=== PATIENT | male | born 1945 | race Caucasian/White ===

== ENCOUNTER 2020-10-18 11:41 | Inpatient (IN) | payer MEDICARE, OTHER ==
[~2020-10-18] VITALS: Ht 185.4 cm; Wt 95.9 kg
[~2020-10-18 11:41] MED LIST: 24HOUR ALLERGY10 MG PO; ACETAMINOPHEN325 MG PO; DRISDOL50000 UNIT PO; DULCOLAX5 MG PO; LEVAQUIN500 MG PO; METAMUCIL1 DOSE PO; METRONIDAZOLE500 MG PO; MIRALAX 238GM238 GM PO; VOLTAREN **OUT50 MG PO
[2020-10-18 12:01] LABS: BASOPHIL 0.3 % (0-2); EOSINOPHIL 0 % (0-7); HCT 38.3 % (42.0-52.0); HGB 12.5 g/dl (13.2-18.0); LYMPHOCYTE 9.3 % (15-48); MCH 32.3 pg (25.0-31.0); MCHC 32.6 g/dL (32.0-36.0); MONOCYTE 19.9 % (0-12); MPV 10.9 fL (6.0-9.5); NEUTROPHIL 66.7 % (41-80); NRBC 0; PLT 171 K/uL (150-400); RBC 3.87 M/uL (4.70-6.00); RDW 13.6 % (11.5-14.0); WBC 8.8 K/uL (4.0-10.5)
[2020-10-18 12:22] LABS: ALBUMIN 2.8 g/dL (3.4-5.0); BILIRUBIN - TOTAL 0.9 mg/dL (0.2-1.0); BUN/CREAT RATIO (CALC) 37.2 RATIO; CREATININE 0.78 mg/dL (0.67-1.17); GLOBULIN (CALCULATION) 4.5 g/dL; POTASSIUM 4.1 mmol/L (3.5-5.1); TOTAL PROTEIN 7.3 g/dL (6.4-8.2)
[2020-10-18 12:31] LABS: LACTIC ACID 1.3 mmol/L (0.4-1.9)
[2020-10-18] MEDS ORDERED: DICLOFENAC SODI75 MG PO (14:43)
[2020-10-18] MEDS ORDERED: FENOFIBRATE54 MG PO (14:44)
[2020-10-18] MEDS ORDERED: NEURONTIN300 MG PO (14:47)
[2020-10-18] MEDS ORDERED: NEURONTIN100 M1 PO (14:47)
[2020-10-18] MEDS ORDERED: VITAMIN D21250 MCG PO (14:48)
[2020-10-18] MEDS ORDERED: ULTRAM50 MG PO (14:48)
[2020-10-18] MEDS ORDERED: PREDNISONE 20MG20 MG PO (14:49)
[2020-10-18] MEDS ORDERED: AZITHROMYCIN250 MG PO (14:49)
[2020-10-19 00:23] LABS: BILIRUBIN NEGATIVE (NEGATIVE); BLOOD NEGATIVE Ery/uL (NEGATIVE); CLARITY CLEAR (CLEAR); COLOR YELLOW (YELLOW); GLUCOSE (U) 2+ mg/dL (NORMAL); LEUKOCYTES NEGATIVE Leu/uL (NEGATIVE); NITRITE NEGATIVE (NEGATIVE); PROTEIN 2+ mg/dL (NEGATIVE); SPECIFIC GRAVITY 1.025 (1.001-1.030)
[2020-10-19 00:31] LABS: SQUAMOUS EPITHELIAL CELLS RARE; STARCH GRANULES PRESENT
--- NOTE | 2020-10-19 08:14 | NUR ---
UPON ASSESSMENT, PT O2 SAT 86-87% ON 5L O2. DOES NOT APPEAR TO BE SHORT OF AIR. RESPIRATORY NOTIFIED AND CHANGED PATIENT OVER TO NONREBREATHER. PATIENT NOW 95% WILL CONTINUE TO MONITOR
[2020-10-19 14:30] LABS: BASOPHIL 0.1 % (0-2); EOSINOPHIL 0.1 % (0-7); HCT 36.8 % (42.0-52.0); HGB 12.1 g/dl (13.2-18.0); LYMPHOCYTE 9.1 % (15-48); MCHC 32.9 g/dL (32.0-36.0); MCV 100.3 fL (78.0-100.0); MONOCYTE 18.4 % (0-12); MPV 11.1 fL (6.0-9.5); NEUTROPHIL 68.6 % (41-80); NRBC 0; PLT 190 K/uL (150-400); RBC 3.67 M/uL (4.70-6.00); RDW 13.7 % (11.5-14.0); WBC 6.7 K/uL (4.0-10.5)
[2020-10-19 14:48] LABS: CREATININE 0.84 mg/dL (0.67-1.17)
[2020-10-19 15:59] LABS: RETICULOCYTE COUNT 1.7 % (1.0-2.0)
[2020-10-19 16:05] LABS: IRON % SATURATION 16.6 %SAT (20-50)
[2020-10-19 16:46] LABS: FOLIC ACID (SERUM) 40.4 ng/mL (8.6-58.9)
--- NOTE | 2020-10-19 17:00 | NUR ---
ATTEMPTED TO SWITCH PATIENT FROM NON REBREATHER TO OXIMIZER 15L PER MD , PT O2 SAT DROPPED TO 86%. RT NOTIFIED AND SWITCHED PATIENT BACK TO NONREBREATHER MASK AND PATIENT IS 92% WILL CONITNUE TO MONITOR
[2020-10-20 06:34] LABS: BASOPHIL 0.2 % (0-2); EOSINOPHIL 0 % (0-7); HCT 35.8 % (42.0-52.0); HGB 11.9 g/dl (13.2-18.0); LYMPHOCYTE 16.1 % (15-48); MCH 32.9 pg (25.0-31.0); MCHC 33.2 g/dL (32.0-36.0); MCV 98.9 fL (78.0-100.0); MONOCYTE 20.8 % (0-12); MPV 10.9 fL (6.0-9.5); NEUTROPHIL 57.9 % (41-80); NRBC 0; PLT 255 K/uL (150-400); RBC 3.62 M/uL (4.70-6.00); RDW 13.6 % (11.5-14.0)
[2020-10-20 06:48] LABS: BUN/CREAT RATIO (CALC) 38.6 RATIO; CREATININE 0.83 mg/dL (0.67-1.17); MAGNESIUM 2.3 mg/dL (1.8-2.4); PHOSPHORUS 2.8 mg/dL (2.6-4.7); POTASSIUM 4.2 mmol/L (3.5-5.1)
[2020-10-21 06:22] LABS: BASOPHIL 0.1 % (0-2); EOSINOPHIL 0 % (0-7); HCT 35.7 % (42.0-52.0); HGB 11.8 g/dl (13.2-18.0); LYMPHOCYTE 8.5 % (15-48); MCH 32.4 pg (25.0-31.0); MCHC 33.1 g/dL (32.0-36.0); MCV 98.1 fL (78.0-100.0); MPV 10.6 fL (6.0-9.5); NEUTROPHIL 74.4 % (41-80); NRBC 0; PLT 322 K/uL (150-400); RBC 3.64 M/uL (4.70-6.00); RDW 13.4 % (11.5-14.0); WBC 6.9 K/uL (4.0-10.5)
[2020-10-21 07:24] LABS: ALBUMIN 2.7 g/dL (3.4-5.0); BILIRUBIN - TOTAL 1.1 mg/dL (0.2-1.0); BUN/CREAT RATIO (CALC) 56.1 RATIO; CREATININE 0.66 mg/dL (0.67-1.17); GLOBULIN (CALCULATION) 3.8 g/dL; POTASSIUM 4.4 mmol/L (3.5-5.1); TOTAL PROTEIN 6.5 g/dL (6.4-8.2)
[2020-10-22 03:57] LABS: BASOPHIL 0.2 % (0-2); EOSINOPHIL 0 % (0-7); HCT 34.3 % (42.0-52.0); HGB 11.5 g/dl (13.2-18.0); LYMPHOCYTE 8.4 % (15-48); MCH 32.8 pg (25.0-31.0); MCHC 33.5 g/dL (32.0-36.0); MCV 97.7 fL (78.0-100.0); MONOCYTE 13.3 % (0-12); MPV 10.5 fL (6.0-9.5); NEUTROPHIL 73.8 % (41-80); NRBC 0; PLT 347 K/uL (150-400); RBC 3.51 M/uL (4.70-6.00); RDW 13.5 % (11.5-14.0); WBC 6.2 K/uL (4.0-10.5)
[2020-10-22 05:17] LABS: ALBUMIN 2.8 g/dL (3.4-5.0); ALKALINE PHOSHATASE 58 U/L (46-116); ALT 60 U/L (16-63); AST 53 U/L (15-37); BILIRUBIN - TOTAL 1.2 mg/dL (0.2-1.0); BUN 35 mg/dL (7-18); BUN/CREAT RATIO (CALC) 53.8 RATIO; CHLORIDE 106 mmol/L (98-107); CO2 (BICARBONATE) 24 mmol/L (21-32); CREATININE 0.65 mg/dL (0.67-1.17); GLOBULIN (CALCULATION) 3.7 g/dL; GLUCOSE 219 mg/dL (74-106); MAGNESIUM 2.4 mg/dL (1.8-2.4); POTASSIUM 4.3 mmol/L (3.5-5.1); TOTAL PROTEIN 6.5 g/dL (6.4-8.2)
[2020-10-22 05:18] LABS: C-REACTIVE PROTEIN < 0.20 mg/dL (<=0.90)
--- NOTE | 2020-10-22 09:56 | NUR ---
10/22/20 An unsuccessful attempt was made to reach Ms. King by telephone. Will continue to monitor patient for needs.
--- NOTE | 2020-10-22 18:19 | NUR ---
AT BEGINNING OF SHIFT PT WAS ON 40 LITERS AND 100% OXYGEN AND A 100% NON-REBREATHER MASK. AFTER SPEAKING WITH DR IGLESIAS HE DECIDED THAT IT WOULD BE BEST FOR THE PATIENT TO BE INTUBATED WAS PLANNED TO BE INTUBATED AT 1030 WITH ANESTHESIA PRESENT THE PATIENT WAS INTUBATED AT 1054, 5MG OF VERSED WAS GIVEN AT 11AM ALL OTHER INTUBATION DRUGS WERE GIVEN BY ANESTHESIA STAFF, PT WAS DIFFICULT TO SEDATE WITH 50MCG OF DIPRIVAN PT WAS STILL FIGHTING THE RESTRAINTS AT 1223 FENTANYL WAS STARTED AT 50MCG AND DIPRIVAN WAS DECREASED DOWN TO 40MCG AT 1235 100MCG OF FENTANYL WAS PUSHED AND 5MG OR VERSED WAS PUSHED TO HELP CALM PATIENT (SEE EMAR FOR TIMES)
--- NOTE | 2020-10-22 18:36 | NUR ---
OG TUBE INSERTED AT 1600 CONTINUOUS FEEDING WAS PREVIOUSLY ORDER, NO FEEDING PUMPS AVAILABLE AT THIS TIME DR IGLESIAS NOTIFIED
[2020-10-23 06:03] LABS: BASOPHIL 0.1 % (0-2); EOSINOPHIL 0 % (0-7); HCT 30.7 % (42.0-52.0); HGB 10.1 g/dl (13.2-18.0); LYMPHOCYTE 3.9 % (15-48); MCH 32.8 pg (25.0-31.0); MCHC 32.9 g/dL (32.0-36.0); MCV 99.7 fL (78.0-100.0); MONOCYTE 15.1 % (0-12); MPV 10.8 fL (6.0-9.5); NEUTROPHIL 78.5 % (41-80); NRBC 0; PLT 277 K/uL (150-400); RBC 3.08 M/uL (4.70-6.00); RDW 13.3 % (11.5-14.0); WBC 10.3 K/uL (4.0-10.5)
[2020-10-23 06:12] LABS: BUN/CREAT RATIO (CALC) 64.9 RATIO; CREATININE 0.57 mg/dL (0.67-1.17); POTASSIUM 4.4 mmol/L (3.5-5.1)
[2020-10-24 05:31] LABS: BASOPHIL 0.2 % (0-2); EOSINOPHIL 0 % (0-7); HGB 10.2 g/dl (13.2-18.0); LYMPHOCYTE 2.7 % (15-48); MCH 32.8 pg (25.0-31.0); MCHC 32.9 g/dL (32.0-36.0); MCV 99.7 fL (78.0-100.0); MONOCYTE 7.7 % (0-12); MPV 11.3 fL (6.0-9.5); NEUTROPHIL 84.6 % (41-80); NRBC 0.2; PLT 263 K/uL (150-400); RBC 3.11 M/uL (4.70-6.00); RDW 13.2 % (11.5-14.0)
[2020-10-24 05:36] LABS: WBC 12.4 K/uL (4.0-10.5)
[2020-10-24 05:58] LABS: ALBUMIN 2.3 g/dL (3.4-5.0); BILIRUBIN - TOTAL 0.6 mg/dL (0.2-1.0); BUN/CREAT RATIO (CALC) 73.5 RATIO; C-REACTIVE PROTEIN 0.2 mg/dL (<=0.90); CREATININE 0.49 mg/dL (0.67-1.17); GLOBULIN (CALCULATION) 3.4 g/dL; MAGNESIUM 2.6 mg/dL (1.8-2.4); POTASSIUM 4.3 mmol/L (3.5-5.1); TOTAL PROTEIN 5.7 g/dL (6.4-8.2)
[2020-10-25 04:31] LABS: BASOPHIL 0.2 % (0-2); EOSINOPHIL 0 % (0-7); HCT 30.4 % (42.0-52.0); HGB 9.9 g/dl (13.2-18.0); LYMPHOCYTE 2.5 % (15-48); MCH 32.2 pg (25.0-31.0); MCHC 32.6 g/dL (32.0-36.0); MONOCYTE 8.3 % (0-12); MPV 11.3 fL (6.0-9.5); NEUTROPHIL 83.4 % (41-80); NRBC 0.2; PLT 234 K/uL (150-400); RBC 3.07 M/uL (4.70-6.00); RDW 13.2 % (11.5-14.0); WBC 14.5 K/uL (4.0-10.5)
[2020-10-25 04:56] LABS: BUN/CREAT RATIO (CALC) 51.8 RATIO; CREATININE 0.56 mg/dL (0.67-1.17); POTASSIUM 4.2 mmol/L (3.5-5.1)
--- NOTE | 2020-10-26 01:28 | NUR ---
PATIENT PEEP WEANED TO 10 FROM 12. SAT 96% FIO2 SET AT 50%
[2020-10-26 04:42] LABS: BASOPHIL 0.5 % (0-2); EOSINOPHIL 0.1 % (0-7); HCT 32.7 % (42.0-52.0); HGB 10.3 g/dl (13.2-18.0); LYMPHOCYTE 1.6 % (15-48); MCH 33.4 pg (25.0-31.0); MCHC 31.5 g/dL (32.0-36.0); MONOCYTE 9.5 % (0-12); MPV 12.8 fL (6.0-9.5); NEUTROPHIL 81.8 % (41-80); NRBC 0.5; RBC 3.08 M/uL (4.70-6.00); RDW 13.6 % (11.5-14.0); WBC 17.4 K/uL (4.0-10.5)
[2020-10-26 04:44] LABS: MCV 106.2 fL (78.0-100.0)
[2020-10-26 04:46] LABS: PLT 142 K/uL (150-400)
[2020-10-26 04:53] LABS: BUN/CREAT RATIO (CALC) 53.7 RATIO; CREATININE 0.54 mg/dL (0.67-1.17); MAGNESIUM 2.6 mg/dL (1.8-2.4); POTASSIUM 4.7 mmol/L (3.5-5.1)
--- NOTE | 2020-10-26 22:33 | NUR ---
RD phone call to Brianda DE LA GARZA to get update re: TF . Pump now available for continuous infusion. currently at 30cc; TF held last shift d/t residuals. tolerating this shift. Lyn mckeon'caro; new TF recs placed in [employer]
[2020-10-27 06:10] LABS: BASOPHIL 0.4 % (0-2); EOSINOPHIL 0 % (0-7); HCT 31.9 % (42.0-52.0); HGB 10.2 g/dl (13.2-18.0); LYMPHOCYTE 0.9 % (15-48); MCH 32.4 pg (25.0-31.0); MCV 101.3 fL (78.0-100.0); MPV 12.2 fL (6.0-9.5); NEUTROPHIL 80.1 % (41-80); NRBC 0.8; PLT 242 K/uL (150-400); RBC 3.15 M/uL (4.70-6.00); RDW 13.7 % (11.5-14.0)
[2020-10-27 06:34] LABS: BUN/CREAT RATIO (CALC) 59.6 RATIO; CREATININE 0.57 mg/dL (0.67-1.17); POTASSIUM 4.2 mmol/L (3.5-5.1)
--- NOTE | 2020-10-27 13:30 | NUR ---
phone call to MD Mills to review patient's TFs. new orders placed for RD recommendations discussed. will follow POC.
[2020-10-28 06:58] LABS: BASOPHIL 0.2 % (0-2); EOSINOPHIL 0 % (0-7); HCT 27.9 % (42.0-52.0); HGB 8.9 g/dl (13.2-18.0); LYMPHOCYTE 1.5 % (15-48); MCH 32.4 pg (25.0-31.0); MCHC 31.9 g/dL (32.0-36.0); MCV 101.5 fL (78.0-100.0); MONOCYTE 9.2 % (0-12); MPV 12.1 fL (6.0-9.5); NEUTROPHIL 81.3 % (41-80); NRBC 0.7; PLT 180 K/uL (150-400); RBC 2.75 M/uL (4.70-6.00); RDW 13.8 % (11.5-14.0); WBC 24.1 K/uL (4.0-10.5)
[2020-10-28 08:07] LABS: BUN/CREAT RATIO (CALC) 57.1 RATIO; CREATININE 0.49 mg/dL (0.67-1.17); MAGNESIUM 2.8 mg/dL (1.8-2.4); POTASSIUM 4.3 mmol/L (3.5-5.1)
[2020-10-29 06:18] LABS: BASOPHIL 0.3 % (0-2); EOSINOPHIL 0 % (0-7); HCT 29.7 % (42.0-52.0); HGB 9.3 g/dl (13.2-18.0); LYMPHOCYTE 1.5 % (15-48); MCH 32.3 pg (25.0-31.0); MCHC 31.3 g/dL (32.0-36.0); MCV 103.1 fL (78.0-100.0); MPV 12.9 fL (6.0-9.5); PLT 154 K/uL (150-400); RBC 2.88 M/uL (4.70-6.00); RDW 13.5 % (11.5-14.0)
[2020-10-29 06:23] LABS: WBC 24.7 K/uL (4.0-10.5)
[2020-10-29 08:05] LABS: BILIRUBIN - TOTAL 0.4 mg/dL (0.2-1.0); CREATININE 0.48 mg/dL (0.67-1.17); POTASSIUM 4.8 mmol/L (3.5-5.1)
[2020-10-30 06:34] LABS: BASOPHIL 0.5 % (0-2); EOSINOPHIL 0 % (0-7); HCT 30.7 % (42.0-52.0); HGB 9.7 g/dl (13.2-18.0); LYMPHOCYTE 0 % (15-48); MCH 32.1 pg (25.0-31.0); MCHC 31.6 g/dL (32.0-36.0); MCV 101.7 fL (78.0-100.0); MONOCYTE 7.7 % (0-12); MPV 12.8 fL (6.0-9.5); NEUTROPHIL 79.9 % (41-80); NRBC 4.2; PLT 147 K/uL (150-400); RBC 3.02 M/uL (4.70-6.00); RDW 13.8 % (11.5-14.0); WBC 25.6 K/uL (4.0-10.5)
[2020-10-30 07:59] LABS: CREATININE 0.5 mg/dL (0.67-1.17); MAGNESIUM 2.7 mg/dL (1.8-2.4); PHOSPHORUS 3.5 mg/dL (2.6-4.7); POTASSIUM 5.3 mmol/L (3.5-5.1)
--- NOTE | 2020-10-30 19:10 | NUR ---
1825 ORDER RECEIVED FOR PICC LINE PLACEMENT. RISKS AND BENEFITS EXPLAINED TO FAMILY, CONSENT SIGNED/ PT'S RIGHT UPPER ARM BASILIC VEIN VISUALIZED [employer] 6 ULTRASOUND MACHINE. PT THEN PREPPED AND DRAPED IN STERILE FASHION. THE AREA WAS CLEANSED WITH CHLORAPREP. THE AREA WAS ANESTHETIZED WITH 1% LIDOCAINE. A 21GA GUIDE NEEDLE WAS USED. GOOD BLOOD RETURN. THE GUIDE WIRE WAS THEN REMOVED AND A CAP WAS PLACED ON THE END. THE PT WAS MEASURED FOR THE PICC PLACEMENT. PICC WAS TRIMMED AT 40 CM AND FLUSHED. THE INTRODUCER WAS REMOVED AND THE PICC CATHETER WAS GUIDED INTO POSITION. THE SHEATH WAS PEELED BACK. A STERILE BIOPATCH WAS PLACED AT THE INSERTION SITE. A STAT LOCK WAS PLACED ON. A STERILE TEGADERM WAS PLACED OVER THE PICC LINE. A STAT PORTABLE CHEST XRAY WAS OBTAINED. PER DR. BARRETT THE PICC LINE IS IN THE CORRECT POSITION.THE STYLET WAS REMOVED AND A CLEAR CAP WAS FLUSHED AND PLACED ON THE BOTH ENDS. PT HAS A 5 FR DOUBLE LUMEN POWER PICC. TRIMMED AT 40 CM, INSERTION 4 CM. BICEP 32 CM. GOOD BLOOD RETURN NOTED. PT TOLERATED WELL. REPORT GIVEN TO JENNIFER DE LA GARZA ON TCU 6. PT TOLERATED THE PROCEDURE WELL. SR UP X 4. .
--- NOTE | 2020-10-30 22:59 | NUR ---
2115 PREPRONE CHECKLIST COMPLETED AND READ ALOUD DURING PRONING. CHG BATH PROVIDED. FOAM DRESSINGS APPLIED TO BONY PROMINENCES: KNEES, SHOULDERS/CLAVICLE, HIPS. ELECTRODES REMOVED. STAT LOCK FOR F/C ABSENT. TUBE FEEDS HELD. ORAL CARE AND SUCTION PROVIDED PRE-PRONE. PERRLA INTACT, EYE PROTECTION PLACED. LINES/TUBES SECURED. PT ADEQUATELY SEDATED/PARALYZED BIS-42 TOF 2/4 PRE-PRONE. PILLOWS AND FLAT SHEET PLACED PER PROTOCOL. 6 NURSING STAFF AT BEDSIDE, 1 RT AT HEAD OF BED, ER MD AT BEDSIDE. BED PLACED IN FLAT POSITION, PT TOLERATED TURN WELL. O2-92% HR-92 BP-151/79 R-18. BIS-40, TOF-2/4 POST PRONATION. ELECTRODES PLACED ON BACK- TELE NSR. ETT 24@LIP. PRONATION PILLOW PLACED UNDER HEAD. HEAD TURNED RT, ARMS IN SWIMMERS POSITION, BED PLACED IN REVERSE [place]. EAR INTACT, EYES CLOSED AND EYE PROTECTION IN PLACE. SKIN REMAINED INTACT, NO OPEN AREAS NOTED. PICC LINE BLEEDING/LEAKING POST TURN, FLUSHES WELL, BLOOD RETURN NOTED. WREATH MACHINE TENDER AWARE.
[2020-10-31 04:10] LABS: BASOPHIL 0.3 % (0-2); EOSINOPHIL 0 % (0-7); HCT 27.4 % (42.0-52.0); LYMPHOCYTE 1.3 % (15-48); MCH 33.1 pg (25.0-31.0); MCHC 32.1 g/dL (32.0-36.0); MONOCYTE 14.9 % (0-12); MPV 12.6 fL (6.0-9.5); NEUTROPHIL 75.4 % (41-80); NRBC 3.9; PLT 174 K/uL (150-400); RBC 2.66 M/uL (4.70-6.00); RDW 14.1 % (11.5-14.0)
[2020-10-31 04:31] LABS: BILIRUBIN - TOTAL 0.7 mg/dL (0.2-1.0); BUN/CREAT RATIO (CALC) 81.2 RATIO; C-REACTIVE PROTEIN 3.6 mg/dL (<=0.90); CREATININE 0.48 mg/dL (0.67-1.17); GLOBULIN (CALCULATION) 3.3 g/dL; MAGNESIUM 2.3 mg/dL (1.8-2.4); TOTAL PROTEIN 5.3 g/dL (6.4-8.2)
[2020-10-31 04:52] LABS: HGB 8.8 g/dl (13.2-18.0); WBC 48.5 K/uL (4.0-10.5)
[2020-10-31 05:53] LABS: INR 1.13 (0.9-1.2); PROTHROMBIN TIME 13.9 SECONDS (11.8-13.4)
[2020-10-31 06:20] LABS: TOTAL CELL COUNT 100
[2020-10-31 06:22] LABS: BAND 2 % (0-10); LYMPHOCYTE(M) 7 % (15-48); MONOCYTE(M) 9 % (0-12); NEUTROPHILS(M) 82 % (41-80)
[2020-10-31 06:23] LABS: ANISOCYTOSIS SLIGHT; PLATELET ESTIMATE NORMAL; PLATELET MORPHOLOGY NORMAL
--- NOTE | 2020-10-31 14:24 | NUR ---
10/31 Please monitor for 02 needs at discharge.
[2020-11-01 04:35] LABS: BASOPHIL 0.1 % (0-2); EOSINOPHIL 0 % (0-7); HCT 16.6 % (42.0-52.0); LYMPHOCYTE 1.7 % (15-48); MCH 32.9 pg (25.0-31.0); MCHC 31.3 g/dL (32.0-36.0); MCV 105.1 fL (78.0-100.0); MONOCYTE 12.2 % (0-12); NEUTROPHIL 78.6 % (41-80); NRBC 8.2; PLT 121 K/uL (150-400); RBC 1.58 M/uL (4.70-6.00); RDW 14.7 % (11.5-14.0)
[2020-11-01 04:45] LABS: HGB 5.2 g/dl (13.2-18.0)
[2020-11-01 04:46] LABS: WBC 40.7 K/uL (4.0-10.5)
[2020-11-01 05:03] LABS: CREATININE 1.09 mg/dL (0.67-1.17); PHOSPHORUS 6.5 mg/dL (2.6-4.7); POTASSIUM 5.8 mmol/L (3.5-5.1)
[2020-11-01 05:04] LABS: MAGNESIUM 2.4 mg/dL (1.8-2.4)
[2020-11-01 14:48] LABS: MCH 31.2 pg (25.0-31.0); MCHC 33.2 g/dL (32.0-36.0); MPV 14.4 fL (6.0-9.5); RBC 2.66 M/uL (4.70-6.00)
[2020-11-01 14:53] LABS: WBC 32.7 K/uL (4.0-10.5)
[2020-11-01 14:54] LABS: HGB 8.3 g/dl (13.2-18.0)
[2020-11-01 15:18] LABS: BUN/CREAT RATIO (CALC) 58.7 RATIO; CREATININE 1.04 mg/dL (0.67-1.17); POTASSIUM 5.7 mmol/L (3.5-5.1)
[2020-11-02 06:29] LABS: BASOPHIL 0.4 % (0-2); EOSINOPHIL 0.4 % (0-7); HCT 28.2 % (42.0-52.0); HGB 9.4 g/dl (13.2-18.0); LYMPHOCYTE 1.5 % (15-48); MCH 29.5 pg (25.0-31.0); MCHC 33.3 g/dL (32.0-36.0); MONOCYTE 15.2 % (0-12); NEUTROPHIL 75.1 % (41-80); NRBC 10.7; RBC 3.19 M/uL (4.70-6.00); RDW 16.5 % (11.5-14.0); RETICULOCYTE COUNT 4.2 % (1.0-2.0); WBC 28.3 K/uL (4.0-10.5)
[2020-11-02 06:30] LABS: MCV 88.4 fL (78.0-100.0)
[2020-11-02 06:31] LABS: PLT 62 K/uL (150-400)
[2020-11-02 06:44] LABS: IRON % SATURATION 91.3 %SAT (20-50)
[2020-11-02 07:18] LABS: ALBUMIN 1.7 g/dL (3.4-5.0); BILIRUBIN - TOTAL 0.8 mg/dL (0.2-1.0); BUN/CREAT RATIO (CALC) 55.1 RATIO; CREATININE 1.07 mg/dL (0.67-1.17); FOLIC ACID (SERUM) 9.6 ng/mL (8.6-58.9); GLOBULIN (CALCULATION) 2.9 g/dL; MAGNESIUM 2.4 mg/dL (1.8-2.4); PHOSPHORUS 4.8 mg/dL (2.6-4.7); POTASSIUM 5.3 mmol/L (3.5-5.1); TOTAL PROTEIN 4.6 g/dL (6.4-8.2)
[2020-11-02 13:31] LABS: INR 1.4 (0.9-1.2); PROTHROMBIN TIME 16.5 SECONDS (11.8-13.4); PTT 39.7 SECONDS (24.4-34.7)
[2020-11-02 13:32] LABS: D-DIMER 0.71 ug/mLFEU (0.00-0.41)
[2020-11-02 17:53] LABS: HCT 19.9 % (42.0-52.0); HGB 6.6 g/dl (13.2-18.0); MCH 29.7 pg (25.0-31.0); MCHC 33.2 g/dL (32.0-36.0); MCV 89.6 fL (78.0-100.0); MPV 14.9 fL (6.0-9.5); RBC 2.22 M/uL (4.70-6.00); RDW 17.4 % (11.5-14.0); WBC 24.6 K/uL (4.0-10.5)
[2020-11-02 18:18] LABS: BUN/CREAT RATIO (CALC) 61.9 RATIO; CREATININE 1.05 mg/dL (0.67-1.17); POTASSIUM 4.9 mmol/L (3.5-5.1)
--- NOTE | 2020-11-03 04:27 | NUR ---
11/02/20 2200 BLOOD GLUCOSE 488 HUMULIN SSI 18UNITS AND CALL MD GORE SAID TO GIVE 22UNITS SUBCUTANEOUS, AND ORDERED LANTUS 50UNITS SUBCUTANEOUS, WILL CONTINUE TO MONITOR
[2020-11-03 08:21] LABS: BASOPHIL 0.3 % (0-2); EOSINOPHIL 0 % (0-7); HCT 32.9 % (42.0-52.0); LYMPHOCYTE 1.1 % (15-48); MCH 29.5 pg (25.0-31.0); MCHC 33.4 g/dL (32.0-36.0); MCV 88.2 fL (78.0-100.0); MONOCYTE 15.6 % (0-12); NEUTROPHIL 78.5 % (41-80); PLT 42 K/uL (150-400); RBC 3.73 M/uL (4.70-6.00)
[2020-11-03 08:30] LABS: INR 1.16 (0.9-1.2); PROTHROMBIN TIME 14.2 SECONDS (11.8-13.4); PTT 32.3 SECONDS (24.4-34.7)
[2020-11-03 08:31] LABS: D-DIMER 1.09 ug/mLFEU (0.00-0.41)
[2020-11-03 08:41] LABS: BAND 6 % (0-10); METAMYELOCYTE 1; MONOCYTE(M) 9 % (0-12); NEUTROPHILS(M) 81 % (41-80); NRBC 13; TOTAL CELL COUNT 100; VARIANT LYMPHOCYTE 3
[2020-11-03 08:42] LABS: PLATELET ESTIMATE DECREASED
[2020-11-03 08:43] LABS: ANISOCYTOSIS SLIGHT; PLATELET MORPHOLOGY NORMAL; POIKILOCYTOSIS SLIGHT
[2020-11-03 08:44] LABS: POLYCHROMASIA SLIGHT
[2020-11-03 08:46] LABS: WBC 33.1 K/uL (4.0-10.5)
[2020-11-03 08:48] LABS: ALBUMIN 1.7 g/dL (3.4-5.0); BILIRUBIN - TOTAL 0.8 mg/dL (0.2-1.0); BUN/CREAT RATIO (CALC) 59.3 RATIO; C-REACTIVE PROTEIN 3.6 mg/dL (<=0.90); CREATININE 1.23 mg/dL (0.67-1.17); GLOBULIN (CALCULATION) 2.8 g/dL; MAGNESIUM 2.5 mg/dL (1.8-2.4); PHOSPHORUS 4.9 mg/dL (2.6-4.7); POTASSIUM 4.9 mmol/L (3.5-5.1); TOTAL PROTEIN 4.5 g/dL (6.4-8.2)
--- NOTE | 2020-11-03 20:46 | NUR ---
Nutrition Follow-up complete; new recommendations discussed with MD Frederick; orders placed for formula change to Glucerna 1.2, rate increased to 70cc/hr. information covered with RN: full nutrition assessment placed in EMR.
[2020-11-04 04:27] LABS: BASOPHIL 0.2 % (0-2); EOSINOPHIL 0 % (0-7); HCT 23.9 % (42.0-52.0); HGB 7.8 g/dl (13.2-18.0); LYMPHOCYTE 0 % (15-48); MCH 29.3 pg (25.0-31.0); MCHC 32.6 g/dL (32.0-36.0); MCV 89.8 fL (78.0-100.0); MONOCYTE 10.4 % (0-12); NRBC 6.3; RBC 2.66 M/uL (4.70-6.00); RDW 17.2 % (11.5-14.0)
[2020-11-04 04:41] LABS: ALBUMIN 1.5 g/dL (3.4-5.0); BILIRUBIN - TOTAL 0.6 mg/dL (0.2-1.0); CREATININE 1.3 mg/dL (0.67-1.17); GLOBULIN (CALCULATION) 2.7 g/dL; MAGNESIUM 2.4 mg/dL (1.8-2.4); PHOSPHORUS 4.7 mg/dL (2.6-4.7); POTASSIUM 4.8 mmol/L (3.5-5.1); TOTAL PROTEIN 4.2 g/dL (6.4-8.2)
[2020-11-04 04:45] LABS: PLT 40 K/uL (150-400)
[2020-11-04 04:46] LABS: NEUTROPHIL 85.5 % (41-80); WBC 41.9 K/uL (4.0-10.5)
[2020-11-04 17:10] LABS: HEPARIN INDUCED PLATELET AB 0.062 OD (0.000-0.400)
[2020-11-05 06:25] LABS: BASOPHIL 0.1 % (0-2); EOSINOPHIL 0 % (0-7); HCT 14.2 % (42.0-52.0); LYMPHOCYTE 0 % (15-48); MCH 29.3 pg (25.0-31.0); MCHC 32.4 g/dL (32.0-36.0); MCV 90.4 fL (78.0-100.0); MONOCYTE 9.8 % (0-12); NRBC 8.2; RBC 1.57 M/uL (4.70-6.00); RDW 17.1 % (11.5-14.0); WBC 21.1 K/uL (4.0-10.5)
[2020-11-05 06:56] LABS: HGB 4.6 g/dl (13.2-18.0)
[2020-11-05 06:58] LABS: PLT 26 K/uL (150-400)
[2020-11-05 07:35] LABS: CREATININE 0.99 mg/dL (0.67-1.17); MAGNESIUM 2.6 mg/dL (1.8-2.4); POTASSIUM 4.9 mmol/L (3.5-5.1)
[2020-11-05 08:45] LABS: RETICULOCYTE COUNT 4.5 % (1.0-2.0)
[2020-11-05 17:57] LABS: HCT 20.6 % (42.0-52.0)
[2020-11-05 17:59] LABS: HGB 6.7 g/dL (13.2-18.0)
[2020-11-06 08:47] LABS: ALBUMIN 2.1 g/dL (3.4-5.0); BILIRUBIN - TOTAL 1.1 mg/dL (0.2-1.0); BUN/CREAT RATIO (CALC) 92.5 RATIO; CREATININE 0.67 mg/dL (0.67-1.17); GLOBULIN (CALCULATION) 2.7 g/dL; INR 1.07 (0.9-1.2); POTASSIUM 4.9 mmol/L (3.5-5.1); PROTHROMBIN TIME 13.3 SECONDS (11.8-13.4); PTT 34.9 SECONDS (24.4-34.7); TOTAL PROTEIN 4.8 g/dL (6.4-8.2)
[2020-11-06 08:54] LABS: BASOPHIL 0.2 % (0-2); EOSINOPHIL 0.1 % (0-7); HCT 27.5 % (42.0-52.0); LYMPHOCYTE 0 % (15-48); MCH 28.9 pg (25.0-31.0); MCHC 32.7 g/dL (32.0-36.0); MCV 88.4 fL (78.0-100.0); MONOCYTE 9.1 % (0-12); NEUTROPHIL 87.9 % (41-80); NRBC 10.3; RBC 3.11 M/uL (4.70-6.00); RDW 16.1 % (11.5-14.0)
[2020-11-06 08:58] LABS: PLT 21 K/uL (150-400); WBC 23.7 K/uL (4.0-10.5)
[2020-11-06 10:26] LABS: BILIRUBIN NEGATIVE (NEGATIVE); BLOOD 2+ Ery/uL (NEGATIVE); CLARITY CLEAR (CLEAR); COLOR YELLOW (YELLOW); GLUCOSE (U) NORMAL (NORMAL); LEUKOCYTES NEGATIVE Leu/uL (NEGATIVE); NITRITE NEGATIVE (NEGATIVE); PROTEIN 1+ mg/dL (NEGATIVE); SPECIFIC GRAVITY 1.015 (1.001-1.030); UROBILINOGEN >=8.0 mg/dL (0.2-1.0); pH 6.5 (5.0-9.0)
[2020-11-06 10:33] LABS: YEAST PRESENT
[2020-11-06 10:34] LABS: URINARY RBC RARE; URINARY WBC RARE
[2020-11-06 10:35] LABS: BACTERIA TRACE; SQUAMOUS EPITHELIAL CELLS RARE
--- NOTE | 2020-11-06 16:10 | NUR ---
ESPINAL TUBING AND BAG CHANGED -1200 UA OBTAINED PICC LINE DRESSING CHANGED - 1530 A LINE TUBING AND DRESSING CHANGED - 1530 LAC IV SITE DRESSING CHANGED - 1530 RESTRAINTS CHANGED -1600 R/T SOILED TUBE FEEDS AND TUBING CHANGED- 0845 VERSED TUBING CHANGED MEROPENUM TUBING CHANGED
[2020-11-07 04:26] LABS: BASOPHIL 0.1 % (0-2); EOSINOPHIL 0 % (0-7); HCT 27.4 % (42.0-52.0); HGB 8.7 g/dl (13.2-18.0); LYMPHOCYTE 0 % (15-48); MCHC 31.8 g/dL (32.0-36.0); MCV 91.3 fL (78.0-100.0); MONOCYTE 7.8 % (0-12); MPV 13.2 fL (6.0-9.5); NEUTROPHIL 90.4 % (41-80); NRBC 6.6; RDW 17.1 % (11.5-14.0); WBC 24.1 K/uL (4.0-10.5)
[2020-11-07 04:46] LABS: PLT 50 K/uL (150-400)
[2020-11-07 05:20] LABS: BILIRUBIN - TOTAL 1.1 mg/dL (0.2-1.0); BUN/CREAT RATIO (CALC) 96.4 RATIO; CREATININE 0.56 mg/dL (0.67-1.17); MAGNESIUM 2.9 mg/dL (1.8-2.4); PHOSPHORUS 2.6 mg/dL (2.6-4.7); POTASSIUM 5.4 mmol/L (3.5-5.1)
--- NOTE | 2020-11-07 13:48 | NUR ---
DANNIE RT WENT INTO ROOM AND STATES THAT PATIENT APPEARED TO HAVE VOMITED AND HAD TUBE FEEDING AROUND HIS MOUTH. DANNIE RT REPORTS THAT HE SUCTIONED HIS MOUTH TO WHICH HE DID REMOVE A MODERATE AMOUNT OF LIQUID FROM THE MOUTH. ASHLEY DE LA GARZA WENT INTO ROOMPAUSED THE FEEDING, RESIDUAL WAS CHECKED AND WAS 55ML ADMINISTERED THE 55ML TO PATIENT. CALLED MD IGLESIAS FOR FURTHER INSTRUCTION, KELSIE ORDERS FOR TUBE FEEDING RATE TO BE DECREASED TO 30ML. ASHLEY DE LA GARZA RECOMMENDED FOR A CHEST X-RAY MD IGLESIAS STATES NOT AT THIS TIME DUE TO THE ET CUFF PT VITALS STABLE, STARTED TUBE FEED BACK AT 30ML, WILL CONTINUE TO MONITOR
[2020-11-08 05:31] LABS: BASOPHIL 0.1 % (0-2); EOSINOPHIL 0 % (0-7); HCT 29.3 % (42.0-52.0); HGB 9.1 g/dl (13.2-18.0); LYMPHOCYTE 0.5 % (15-48); MCH 28.9 pg (25.0-31.0); MCHC 31.1 g/dL (32.0-36.0); MONOCYTE 5.2 % (0-12); MPV 13.4 fL (6.0-9.5); NEUTROPHIL 92.9 % (41-80); NRBC 3.8; RBC 3.15 M/uL (4.70-6.00); RDW 16.8 % (11.5-14.0); WBC 20.5 K/uL (4.0-10.5)
[2020-11-08 05:32] LABS: PLT 44 K/uL (150-400)
[2020-11-08 05:34] LABS: INR 1.11 (0.9-1.2); PROTHROMBIN TIME 13.7 SECONDS (11.8-13.4)
[2020-11-08 05:35] LABS: PTT 34.6 SECONDS (24.4-34.7)
[2020-11-08 05:49] LABS: D-DIMER 4.98 ug/mLFEU (0.00-0.41)
[2020-11-08 06:12] LABS: BUN/CREAT RATIO (CALC) 94.3 RATIO; CREATININE 0.53 mg/dL (0.67-1.17)
[2020-11-08 06:15] LABS: POTASSIUM 5.5 mmol/L (3.5-5.1)
--- NOTE | 2020-11-09 02:16 | NUR ---
D/Cd HAROON AT 2300 ON 11/08/20 PER ORDER.
[2020-11-09 04:38] LABS: BASOPHIL 0.1 % (0-2); EOSINOPHIL 0.1 % (0-7); MCH 28.9 pg (25.0-31.0); MCHC 31.3 g/dL (32.0-36.0); MCV 92.5 fL (78.0-100.0); MONOCYTE 5.3 % (0-12); NRBC 3.3; RBC 3.46 M/uL (4.70-6.00); RDW 16.5 % (11.5-14.0); WBC 18.7 K/uL (4.0-10.5)
[2020-11-09 04:45] LABS: PLT 62 K/uL (150-400)
[2020-11-09 04:46] LABS: NEUTROPHIL 92.6 % (41-80)
[2020-11-09 05:00] LABS: BUN/CREAT RATIO (CALC) 105.9 RATIO; CREATININE 0.51 mg/dL (0.67-1.17); POTASSIUM 5.3 mmol/L (3.5-5.1)
--- NOTE | 2020-11-09 18:47 | NUR ---
PATIENT'S SATS DECREASED AFTER OXYGEN DECREASED, RAISED TO 65%.
[2020-11-10 04:05] LABS: BASOPHIL 0.1 % (0-2); EOSINOPHIL 0 % (0-7); HCT 32.4 % (42.0-52.0); HGB 10.1 g/dl (13.2-18.0); LYMPHOCYTE 1.7 % (15-48); MCH 28.6 pg (25.0-31.0); MCHC 31.2 g/dL (32.0-36.0); MCV 91.8 fL (78.0-100.0); MONOCYTE 4.7 % (0-12); NRBC 2.1; PLT 69 K/uL (150-400); RBC 3.53 M/uL (4.70-6.00); RDW 16.4 % (11.5-14.0); WBC 17.8 K/uL (4.0-10.5)
[2020-11-10 04:17] LABS: NEUTROPHIL 92.5 % (41-80)
[2020-11-10 05:10] LABS: BUN/CREAT RATIO (CALC) 96.2 RATIO; CREATININE 0.52 mg/dL (0.67-1.17); POTASSIUM 5.1 mmol/L (3.5-5.1)
[2020-11-11 04:09] LABS: BUN/CREAT RATIO (CALC) 93.9 RATIO; CREATININE 0.49 mg/dL (0.67-1.17)
[2020-11-11 06:59] LABS: BASOPHIL 0.1 % (0-2); EOSINOPHIL 0.1 % (0-7); HCT 34.8 % (42.0-52.0); HGB 10.7 g/dl (13.2-18.0); LYMPHOCYTE 1.2 % (15-48); MCH 28.8 pg (25.0-31.0); MCHC 30.7 g/dL (32.0-36.0); MCV 93.8 fL (78.0-100.0); MONOCYTE 4.9 % (0-12); NEUTROPHIL 92.7 % (41-80); NRBC 1.4; PLT 68 K/uL (150-400); RBC 3.71 M/uL (4.70-6.00); RDW 16.2 % (11.5-14.0); WBC 19.8 K/uL (4.0-10.5)
--- NOTE | 2020-11-11 15:00 | NUR ---
PT TUBE FEDDING RESIDUAL CHECKED ON ROUNDS BY THIS RN. RESIDUAL WAS 300 ML, TUBE FEEDS WILL BE HELD FOR 4 HOURS OR 7 PM.
[2020-11-12 05:00] LABS: BASOPHIL 0.1 % (0-2); EOSINOPHIL 0.2 % (0-7); HCT 31.5 % (42.0-52.0); HGB 9.8 g/dl (13.2-18.0); LYMPHOCYTE 1.2 % (15-48); MCHC 31.1 g/dL (32.0-36.0); MCV 93.2 fL (78.0-100.0); MONOCYTE 4.3 % (0-12); MPV 14.9 fL (6.0-9.5); NEUTROPHIL 92.7 % (41-80); NRBC 0.9; RBC 3.38 M/uL (4.70-6.00); RDW 16.2 % (11.5-14.0)
[2020-11-12 05:03] LABS: PLT 51 K/uL (150-400); WBC 16.9 K/uL (4.0-10.5)
[2020-11-12 05:14] LABS: ALBUMIN 1.9 g/dL (3.4-5.0); BILIRUBIN - TOTAL 1.5 mg/dL (0.2-1.0); BUN/CREAT RATIO (CALC) 97.7 RATIO; C-REACTIVE PROTEIN 7.7 mg/dL (<=0.90); CREATININE 0.44 mg/dL (0.67-1.17); MAGNESIUM 2.1 mg/dL (1.8-2.4); PHOSPHORUS 2.7 mg/dL (2.6-4.7); POTASSIUM 4.7 mmol/L (3.5-5.1); TOTAL PROTEIN 5.9 g/dL (6.4-8.2)
[2020-11-13 08:38] LABS: BASOPHIL 0.1 % (0-2); EOSINOPHIL 0.3 % (0-7); HCT 30.6 % (42.0-52.0); HGB 9.5 g/dl (13.2-18.0); LYMPHOCYTE 1.3 % (15-48); MCH 29.1 pg (25.0-31.0); MCV 93.6 fL (78.0-100.0); MONOCYTE 4.8 % (0-12); NRBC 0.3; RBC 3.27 M/uL (4.70-6.00); RDW 15.8 % (11.5-14.0); WBC 13.7 K/uL (4.0-10.5)
[2020-11-13 08:41] LABS: NEUTROPHIL 92.4 % (41-80)
[2020-11-13 08:42] LABS: PLT 43 K/uL (150-400)
[2020-11-13 08:56] LABS: ALBUMIN 1.8 g/dL (3.4-5.0); BILIRUBIN - TOTAL 1.3 mg/dL (0.2-1.0); BUN/CREAT RATIO (CALC) 105.1 RATIO; C-REACTIVE PROTEIN 7.7 mg/dL (<=0.90); CREATININE 0.39 mg/dL (0.67-1.17); GLOBULIN (CALCULATION) 3.5 g/dL; PHOSPHORUS 2.4 mg/dL (2.6-4.7); POTASSIUM 4.6 mmol/L (3.5-5.1); TOTAL PROTEIN 5.3 g/dL (6.4-8.2)
[2020-11-15 04:27] LABS: BASOPHIL 0.1 % (0-2); EOSINOPHIL 0.2 % (0-7); HCT 29.1 % (42.0-52.0); LYMPHOCYTE 4.4 % (15-48); MCH 29.2 pg (25.0-31.0); MCHC 30.9 g/dL (32.0-36.0); MCV 94.5 fL (78.0-100.0); MONOCYTE 3.5 % (0-12); NRBC 0; RBC 3.08 M/uL (4.70-6.00); RDW 15.9 % (11.5-14.0); WBC 10.7 K/uL (4.0-10.5)
[2020-11-15 04:29] LABS: NEUTROPHIL 90.6 % (41-80)
[2020-11-15 04:30] LABS: PLT 36 K/uL (150-400)
[2020-11-15 05:02] LABS: ALBUMIN 1.6 g/dL (3.4-5.0); BILIRUBIN - TOTAL 1.2 mg/dL (0.2-1.0); CREATININE 0.47 mg/dL (0.67-1.17); MAGNESIUM 2.1 mg/dL (1.8-2.4); PHOSPHORUS 2.2 mg/dL (2.6-4.7); POTASSIUM 4.3 mmol/L (3.5-5.1); TOTAL PROTEIN 5.6 g/dL (6.4-8.2)
[2020-11-16 05:14] LABS: BASOPHIL 0.2 % (0-2); EOSINOPHIL 0.2 % (0-7); HCT 29.5 % (42.0-52.0); MCH 28.8 pg (25.0-31.0); MCHC 30.5 g/dL (32.0-36.0); MCV 94.6 fL (78.0-100.0); MONOCYTE 3.5 % (0-12); MPV 11.9 fL (6.0-9.5); NRBC 0.4; RBC 3.12 M/uL (4.70-6.00); WBC 10.3 K/uL (4.0-10.5)
[2020-11-16 05:22] LABS: NEUTROPHIL 88.5 % (41-80); PLT 68 K/uL (150-400)
[2020-11-16 05:34] LABS: BUN/CREAT RATIO (CALC) 113.2 RATIO; CREATININE 0.53 mg/dL (0.67-1.17); MAGNESIUM 2.3 mg/dL (1.8-2.4); PHOSPHORUS 2.9 mg/dL (2.6-4.7)
--- NOTE | 2020-11-16 14:49 | NUR ---
PT WAS TURNED TO HIS LEFT SIDE, PT DESATED DOWN TO 82%. REPOSITIONED BACK TO THE RIGHT SIDE AND INCREASED FIO2 TO 85%, SATS CAME UP TO 89%. NOTIFIED DR BARRETT, HE SAID TO HAVE RESPIRATORY TO PLACE BACK ON PRESSURE SUPPORT FOR TODAY HE SEE IF THAT HELPS NOTIFIED RESP OF THE VERBAL ORDER FROM DR BARRETT TO PLACE ON PRESSURE SUPPORT
--- NOTE | 2020-11-16 17:42 | NUR ---
CPAP TRIAL STARTED AT 1504 TO 1608 CHANGED BACK TO AC RATE 22, TIDAL 450, PEEP 6, FIO2 85 AT 1725 CHANGED TO SIMV RATE 22, TIDAL 450,PS 10,PEEP 6,FIO2 85%
[2020-11-17 04:36] LABS: BASOPHIL 0.2 % (0-2); EOSINOPHIL 0.4 % (0-7); HCT 28.2 % (42.0-52.0); HGB 8.7 g/dl (13.2-18.0); LYMPHOCYTE 4.9 % (15-48); MCH 29.1 pg (25.0-31.0); MCHC 30.9 g/dL (32.0-36.0); MCV 94.3 fL (78.0-100.0); MONOCYTE 6.2 % (0-12); MPV 13.2 fL (6.0-9.5); NRBC 0.9; RBC 2.99 M/uL (4.70-6.00); RDW 15.9 % (11.5-14.0); WBC 8.1 K/uL (4.0-10.5)
[2020-11-17 04:41] LABS: NEUTROPHIL 86.6 % (41-80)
[2020-11-17 04:42] LABS: PLT 65 K/uL (150-400)
[2020-11-17 04:53] LABS: ALBUMIN 1.7 g/dL (3.4-5.0); BILIRUBIN - TOTAL 1.2 mg/dL (0.2-1.0); CREATININE 0.5 mg/dL (0.67-1.17); GLOBULIN (CALCULATION) 4.3 g/dL; MAGNESIUM 2.4 mg/dL (1.8-2.4); PHOSPHORUS 2.5 mg/dL (2.6-4.7)
--- NOTE | 2020-11-17 16:40 | NUR ---
1351: RN TO PT BEDSIDE FOR SEDATION VACATION, PT DID NOT RESPOND TO STERNAL RUB OR NOXIOUS STIMULI, PUPILS 2 MM, NON-REACTIVE, NO GAG REFLEX, DOES NOT FOLLOW COMMANDS, CORNEAL REFLEX IS INTACT, PT BEGAN TO DESAT TO 81%, SEDATION TURNED BACK ON, MD NOTIFIED OF EVENTS THAT TOOK PLACE.
--- NOTE | 2020-11-17 16:42 | NUR ---
1030: PT O2 90%, NOTIFIED, OKAY FOR O2 TO BE 90 OR GREATER. WILL CONTINUE TO MONITOR.
--- NOTE | 2020-11-17 16:43 | NUR ---
1551: SVT NOTED ON MONITOR, RATE OF 205, VERBAL ORDER FOR ADENOSINE GIVEN, TUBING CHANGED TO PERIPHERAL IV, BY 1553 PT HR WAS 112 AND THERE WAS NO NEED FOR ADENOSINE, WILL CONTINUE TO MONITOR, MD NOTIFIED OF MED NOT GIVEN.
--- NOTE | 2020-11-17 16:47 | NUR ---
1600: PT BECAME FLUSH AROUND FACE, LEFT SIDED FACIAL DROOP NOTED, TEMPORAL TEMP 100.2, PT FACE WIPED WITH WET MD CORNELL NOTIFIED, WILL CONTINUE TO MONITOR.
--- NOTE | 2020-11-17 16:49 | NUR ---
1130: RN SPOKE WITH VIA TELEPHONE, UPDATE PROVIDED, FAMILY WOULD LIKE TO SET UP A MEETING WITH THE PHYSICIAN TO DISCUSS CARE. MD NOTIFIED.
--- NOTE | 2020-11-18 12:55 | NUR ---
1030 FAMILY HERE, VISTIED WITH PATIENT. REQUESTED THAT PATIENT BE MADE COMFORT CARE AND REMOVED FROM VENTILATOR. 1055 PATIENT EXTUBATED BY RESPIRATORY. NURSE STAYED WITH PATIENT UNTIL AT 1201. BODY RELEASED TO [facility] IN [place].
== END 2020-11-18 12:50 | disposition expired | DRG 870 ==
LOC: FER 11:41 → FTCU 12:38 → FICU 11-01 14:49
PROVIDERS: Emergency Medicine; Internal Medicine; Nurse Practitioner; Student in an Organized Health Care Education/Training Program; ADMIT Internal Medicine
PROC: XW033E5 Introduction of Remdesivir Anti-infective into Peripheral Vein, Percutaneous Approach, New Technology Group 5 (ICD-10-PCS; 2020-10-18)
PROC: XW0DXM6 Introduction of Baricitinib into Mouth and Pharynx, External Approach, New Technology Group 6 (ICD-10-PCS; 2020-10-19)
PROC: 5A0945A Assistance with Respiratory Ventilation, 24-96 Consecutive Hours, High Flow/Velocity Cannula (ICD-10-PCS; 2020-10-21)
PROC: 0BH17EZ Insertion of Endotracheal Airway into Trachea, Via Natural or Artificial Opening (ICD-10-PCS; principal; 2020-10-22)
PROC: 5A1955Z Respiratory Ventilation, Greater than 96 Consecutive Hours (ICD-10-PCS; 2020-10-22)
PROC: 02HV33Z Insertion of Infusion Device into Superior Vena Cava, Percutaneous Approach (ICD-10-PCS; 2020-10-30)
PROC: 3E043XZ Introduction of Vasopressor into Central Vein, Percutaneous Approach (ICD-10-PCS; 2020-10-30)
PROC: 30243N1 Transfusion of Nonautologous Red Blood Cells into Central Vein, Percutaneous Approach (ICD-10-PCS; 2020-11-01)
PROC: 30243N1 Transfusion of Nonautologous Red Blood Cells into Central Vein, Percutaneous Approach (ICD-10-PCS; 2020-11-02)
PROC: 30243N1 Transfusion of Nonautologous Red Blood Cells into Central Vein, Percutaneous Approach (ICD-10-PCS; 2020-11-03)
PROC: 30243N1 Transfusion of Nonautologous Red Blood Cells into Central Vein, Percutaneous Approach (ICD-10-PCS; 2020-11-05)
PROC: 30243R1 Transfusion of Nonautologous Platelets into Central Vein, Percutaneous Approach (ICD-10-PCS; 2020-11-06)
PROC: 30243N1 Transfusion of Nonautologous Red Blood Cells into Central Vein, Percutaneous Approach (ICD-10-PCS; 2020-11-06)
PROC: 30243R1 Transfusion of Nonautologous Platelets into Central Vein, Percutaneous Approach (ICD-10-PCS; 2020-11-15)
DX: A41.89 Other specified sepsis (principal); U07.1 COVID-19; J96.01 Acute respiratory failure with hypoxia; J12.82 Pneumonia due to coronavirus disease 2019; R65.21 Severe sepsis with septic shock; J15.212 Pneumonia due to Methicillin resistant Staphylococcus aureus; I47.2 Ventricular tachycardia; D62 Acute posthemorrhagic anemia; T82.838A Hemorrhage due to vascular prosthetic devices, implants and grafts, initial encounter; D68.32 Hemorrhagic disorder due to extrinsic circulating anticoagulants; J93.9 Pneumothorax, unspecified; J95.851 Ventilator associated pneumonia; B37.41 Candidal cystitis and urethritis; J95.859 Other complication of respirator [ventilator]; Z51.5 Encounter for palliative care; Z66 Do not resuscitate; I48.0 Paroxysmal atrial fibrillation; E78.00 Pure hypercholesterolemia, unspecified; I10 Essential (primary) hypertension; M19.90 Unspecified osteoarthritis, unspecified site; R57.1 Hypovolemic shock; R73.9 Hyperglycemia, unspecified; E87.5 Hyperkalemia; J98.2 Interstitial emphysema; T45.515A Adverse effect of anticoagulants, initial encounter; D69.59 Other secondary thrombocytopenia; E87.70 Fluid overload, unspecified; Z96.653 Presence of artificial knee joint, bilateral; Z79.52 Long term (current) use of systemic steroids; Z79.899 Other long term (current) drug therapy; Z90.49 Acquired absence of other specified parts of digestive tract; Z88.0 Allergy status to penicillin; Z98.890 Other specified postprocedural states; Z78.1 Physical restraint status
CPT/HCPCS: 31500; 36415; 36430; 36600; 71045; 71250; 74018; 80048; 80053; 80202; 81001; 82607; 82728; 82746; 82803; 82962; 83010; 83036; 83540; 83550; 83605; 83615; 83690; 83735; 83880; 84100; 84145; 84439; 84443; 84478; 84484; 85014; 85018; 85025; 85379; 85384; 85610; 85730; 86022; 86140; 86850; 86900; 86901; 86922; 87040; 87070; 87077; 87088; 87186; 87205; 93005; 94002; 94010; 94640; 94667; 94668; C1751; C9113; C9399; J0153; J0282; J0456; J0610; J0637; J0696; J1100; J1160; J1642; J1650; J1815; J1940; J2185; J2250; J2704; J2916; J3010; J3370; J3490; J7030; J7040; J7050; J7060; J8540; P9016; P9035; P9046; U0002